=== PATIENT | female | born 1955 | race Caucasian/White ===

== ENCOUNTER → 2017-10-12 | Outpatient (CLI) | payer OTHER ==
[~2017-10-12] MED LIST: ATOR10 PO; CLOP75 PO; INSDET100 SQ; INSUASPI SC; INSUASPI SS; LOSA50 PO; OLME20 PO; UNKNOWN BP MED; [UNRECOGNIZED DRUG - REMARK]
[2017-10-14 12:41] LABS: HPV Genotype 16 Not Detected (NOTDET); HPV Genotype 18 Not Detected (NOTDET)
[2017-10-18 11:56] LABS: HPV High Risk Other Not Detected (NOTDET)
== END | disposition home or self-care (01) ==
LOC: LAB 18:04
PROVIDERS: Obstetrics & Gynecology
DX: Z01.419 Encounter for gynecological examination (general) (routine) without abnormal findings (principal)
CPT/HCPCS: 87624; G0123

== ENCOUNTER → 2018-10-19 | Outpatient (CLI) | payer OTHER ==
[2018-10-24 10:10] LABS: HPV 16 Negative (Negative); HPV 18 Negative (Negative); HPV OTHER HR TYPES Negative (Negative)
== END | disposition home or self-care (01) ==
LOC: LAB SHORT 10:49 → LAB 10:49
PROVIDERS: Obstetrics & Gynecology
DX: Z01.419 Encounter for gynecological examination (general) (routine) without abnormal findings (principal)
CPT/HCPCS: 87624; G0123

== ENCOUNTER 2019-07-05 08:34 | Day surgery (SDC) | payer OTHER ==
[~2019-07-05] VITALS: Wt 82.2 kg
[~2019-07-05 08:34] MED LIST changes: +BASAGLAR K100 UNIT/1 SC; +OMEPRAZOLE20 MG PO
--- NOTE | 2019-07-05 10:00 | NUR ---
History, Chart, Medications and Allergies reviewed before start of procedure.Patient States Post-Procedure ride home has been arranged. Patient states colon prep results clear.
--- NOTE | 2019-07-05 10:22 | NUR ---
07/05/19 1022 Yasmeen Bentley PATIENT DETERMINED TO BE ASA APPROPRIATE FOR PROPOFOL SEDATION PRIOR TO START OF PROCEDURE BY DR. BATRES. 3-LEAD EKG REVIEWED WITH PHYSICIAN PRIOR TO START OF PROCEDURE. PATIENT CONFIRMS NPO STATUS AND AGREES WITH SCHEDULED PROCEDURE. History, Chart, Medications and Allergies reviewed before start of procedure. MONITOR INTACT WITH CONTINUOUS PULSE OXIMETRY AND INTERMITTENT BP. O2 VIA N/C INTACT THROUGHOUT SEDATION/PROCEDURE, 3L.
--- NOTE | 2019-07-05 11:08 | NUR ---
Patient up to Ambulate independently. Gait steady. Discharge instructions reviewed with patient. Patient verbalizes understanding. Copy given to patient to take home. Patient States Post-Procedure ride home has been arranged. Discharged via wheelchair to private car for ride home. ALL BELONINGS RETURNED TO PATIENT. PATIENT HAD STOPPED PLAVIX ON TUESDAY. I ASKED DR BATRES WHEN HE WOULD LIKE HER TO RESTART HER MEDICATION. HIS RESPONSE WAS " I NEVER ASKED HER TO STOP IT", YES HAVE HER RESTART IT TODAY.
== END 2019-07-05 23:57 | disposition home or self-care (01) ==
LOC: ORSCMMR 08:34 → ORD 10:00 → ORSCMMR 10:00
PROVIDERS: Internal Medicine Gastroenterology
PROC: 0DJD8ZZ Inspection of Lower Intestinal Tract, Via Natural or Artificial Opening Endoscopic (ICD-10-PCS; principal; 2019-07-05 10:00)
DX: Z12.11 Encounter for screening for malignant neoplasm of colon (principal); Z86.010 Personal history of colon polyps; K64.8 Other hemorrhoids; I25.2 Old myocardial infarction; K21.9 Gastro-esophageal reflux disease without esophagitis; E11.9 Type 2 diabetes mellitus without complications; Z79.01 Long term (current) use of anticoagulants; Z79.4 Long term (current) use of insulin; Z79.899 Other long term (current) drug therapy
CPT/HCPCS: 82947; J2704; J7120

== ENCOUNTER 2021-06-09 08:02 | Day surgery (SDC) | payer OTHER ==
[~2021-06-09] VITALS: Ht 167.6 cm; Wt 82.5 kg
[~2021-06-09 08:02] MED LIST changes: +ATOR20 PO; +Aspir 8181 MG PO; +LANS15EC PO; +MELA3 PO
--- NOTE | 2021-06-09 08:57 | NUR ---
06/09/21 0857 MicheleRossy S LEFT EYE OBSERVED TO BE BLOOD SHOT. PER PT. SHE MIGHT HAVE RUBBED IT BUT DIDN'T NOTICE IT TODAY.
--- NOTE | 2021-06-09 14:19 | NUR ---
06/09/21 2593 Rossy Bautista PT. HAS A INSULIN PUMP & CAN MONITOR HER BLOOD SUGARS. PT. CBG ON HER OWN MONITOR WAS 231 WHEN GOING HOME.
== END 2021-06-09 12:10 | disposition home or self-care (01) ==
LOC: ORSCSDS 08:02
PROVIDERS: Student in an Organized Health Care Education/Training Program
PROC: 0DB68ZX Excision of Stomach, Via Natural or Artificial Opening Endoscopic, Diagnostic (ICD-10-PCS; principal; 2021-06-09 09:00)
PROC: 0DB58ZX Excision of Esophagus, Via Natural or Artificial Opening Endoscopic, Diagnostic (ICD-10-PCS; principal; 2021-06-09 09:00)
PROC: 0DB48ZX Excision of Esophagogastric Junction, Via Natural or Artificial Opening Endoscopic, Diagnostic (ICD-10-PCS; principal; 2021-06-09 09:00)
DX: K21.9 Gastro-esophageal reflux disease without esophagitis (principal); R05 Cough; K29.70 Gastritis, unspecified, without bleeding; K22.8 Other specified diseases of esophagus; K44.9 Diaphragmatic hernia without obstruction or gangrene; E10.21 Type 1 diabetes mellitus with diabetic nephropathy; K20.90 Esophagitis, unspecified without bleeding; I10 Essential (primary) hypertension; I25.2 Old myocardial infarction; Z79.82 Long term (current) use of aspirin; Z79.4 Long term (current) use of insulin; Z79.899 Other long term (current) drug therapy
CPT/HCPCS: 82947; 88305; 88312; 88342; J0330; J0461; J2250; J2405; J2704; J7120

== ENCOUNTER 2022-02-10 07:39 | Day surgery (SDC) | payer OTHER ==
[~2022-02-10] VITALS: Ht 167.6 cm; Wt 80.6 kg
--- NOTE | 2022-02-10 09:41 | NUR ---
02/10/22 0941 JANE PIMENTEL SURGERY WAS CANCELLED PER DR MARCUS DUE TO PT TAKING PLAVIX YESTERDAY.
== END 2022-02-10 09:35 | disposition home or self-care (01) ==
LOC: ORSCSDS 07:39
DX: J38.00 Paralysis of vocal cords and larynx, unspecified (principal); Z53.9 Procedure and treatment not carried out, unspecified reason
CPT/HCPCS: 82947; J0171

== ENCOUNTER 2022-02-17 08:26 | Day surgery (SDC) | payer OTHER ==
[~2022-02-17] VITALS: Ht 167.6 cm; Wt 80.0 kg
[2022-02-17] MEDS ORDERED: METO25ER PO (09:09)
[2022-02-17] MEDS ORDERED: FAMO20 (09:13)
--- NOTE | 2022-02-17 10:01 | NUR ---
02/17/22 1001 HAO PRIEST 0.15MG OF EPI (1MG/1ML) ADDED TO 30MLS OF LIDOCAINE 1% TO CREATE A LOCAL SOLUTION OF LIDOCAINE 1% WITH 1:200,000 EPI 3MLS OF LOCAL SOLUTION INJECTED INTO OPERATIVE SITE BY DR MARCUS AT BEGINNING OF CASE.
== END 2022-02-17 11:56 | disposition home or self-care (01) ==
LOC: ORSCSDS 08:26
PROVIDERS: Otolaryngology
PROC: 0CUV0JZ Supplement Left Vocal Cord with Synthetic Substitute, Open Approach (ICD-10-PCS; principal; 2022-02-17 10:00)
DX: J38.00 Paralysis of vocal cords and larynx, unspecified (principal); E10.10 Type 1 diabetes mellitus with ketoacidosis without coma; Z79.4 Long term (current) use of insulin; I10 Essential (primary) hypertension; I25.2 Old myocardial infarction; Z86.73 Personal history of transient ischemic attack (TIA), and cerebral infarction without residual deficits; Z79.02 Long term (current) use of antithrombotics/antiplatelets; Z79.82 Long term (current) use of aspirin
CPT/HCPCS: 82947; C1713; J0171; J2250; J2704; J3010; J7120